=== PATIENT | male | born 1975 ===

== ENCOUNTER 2018-09-18 06:50 | Day surgery (SDC) | payer BC ==
[~2018-09-18 06:50] MED LIST: CEFAZOLIN 2 Gram 2 GM/50 ML BAG IVPB ONE; FAMOTIDINE 20MG TABLET PO ONE; MECLIZINE 25 MG TABLET PO ONE; METOCLOPRAMIDE 10 MG TABLET PO ONE; VANCOMYCIN HCL 1,000 MG in DEXTROSE 5 % IN WATER 250 ML IVPB ONE
[2018-09-18] MEDS ORDERED: BUPIVACAINE 0.5% W/EPI MPF 30 ML VIAL IVP ONE (06:51)
[2018-09-18] MEDS ORDERED: PROPOFOL 10 MG/ML VIAL IV ONE (06:51)
[2018-09-18] MEDS ORDERED: KETOROLAC 30 MG/ML VIAL IVP ONE (06:51)
[2018-09-18] MEDS ORDERED: DEXAMETHASONE 4 MG/ML 1ML VIAL IVP ONE (06:51)
[2018-09-18] MEDS ORDERED: GLYCOPYRROLATE 0.2 MG/ML ML IV ONE (06:51)
[2018-09-18] MEDS ORDERED: MIDAZOLAM HCL 2MG/2ML VIAL IV ONE (06:51)
[2018-09-18] MEDS ORDERED: KETAMINE HCL 100MG/1ML VIAL INJ ONE (06:51)
[2018-09-18] MEDS ORDERED: TRANEXAMIC ACID 1,000 MG/10 ML ML IV ONE (06:51)
[2018-09-18] MEDS ORDERED: ROPIVACAINE HCL (NAROPIN) /PF 5MG/ML 20ML VIAL IV ONE (06:51)
[2018-09-18 07:37] LABS: ABO GROUP A
[2018-09-18 07:38] LABS: ANTIBODY SCREEN NEGATIVE (NEGATIVE); RH TYPE NEGATIVE
[2018-09-18] MEDS ORDERED: HYDROCODONE/APAP 10/325 TABLET PO ONE (12:45)
[2018-09-18] MEDS: HYDROCODONE/APAP 10/325 TABLET PO PRN ×3 (12:50→22:12)
[2018-09-18] MEDS ORDERED: HYDROMORPHONE HCL 2 MG/ML VIAL IM PRN (13:37)
[2018-09-18] MEDS ORDERED: DIPHENHYDRAMINE HCL 25 MG CAPSULE PO PRN (13:37)
[2018-09-18] MEDS ORDERED: ACETAMINOPHEN 325 MG TAB PO PRN (13:37)
[2018-09-18] MEDS ORDERED: AL HYDROX/MAG HYDROX 30ML UD PO PRN (13:37)
[2018-09-18] MEDS ORDERED: MAGNESIUM HYDROXIDE 30 ML UDC PO PRN (13:37)
[2018-09-18] MEDS ORDERED: ACETAMINOPHEN W/ CODEINE 300MG/60MG TABLET PO PRN ×2 (13:37)
[2018-09-18] MEDS ORDERED: ZOLPIDEM TARTRATE 5 MG TABLET PO PRN (13:37)
[2018-09-18] MEDS ORDERED: KETOROLAC 30 MG/ML VIAL IVP PRN ×2 (13:37)
[2018-09-18] MEDS ORDERED: NALOXONE 0.4 MG/1 ML VIAL IVP PRN (13:37)
[2018-09-18] MEDS ORDERED: BISACODYL 10 MG SUPP RC PRN (13:37)
[2018-09-18] MEDS ORDERED: HYDROCODONE/APAP 10/325 TABLET PO PRN (13:37)
--- NOTE | 2018-09-18 14:36 | Rehab Evaluation ---
Patient Information - Patient Information Diagnosis: R knee OA Ordered Treatment: PT Evaluate and Treat Status: Initial Evaluation Surgery: Yes (R TKA) Date of Surgery: 09/18/18 Past Medical/Surgical Hx: PAST MEDICAL/SURGICAL HISTORY Past Surgical History LEFT KNEE ACL RECONSTRUCTION HERNIA REPAIR X'S 2 ORIF JAW COLON RESECTION PMH - Respiratory Hx Respiratory Disorders Yes Comment: CHRONIC SINUS DAILY CLARITIN PMH - Cardiovascular Hx Cardiovascular Disorders No Exercise Tolerance Good PMH - Neuro Hx Neurological Disorders No PMH - GI Hx Gastrointestinal Disorders Yes Hx Diverticulitis Yes: HAS HAD COLON RESECTION PMH - Hx Genitourinary Disorders No PMH - Endocrine Hx Endocrine Disorders No PMH - Musculoskeletal Hx Musculoskeletal Disorders Yes Hx Arthritis Yes: RIGHT KNEE PMH - Psych Hx Psychiatric Problems Yes Hx Anxiety Yes: ON MEDS PMH - Hematology/Oncology Hx Hematology/Oncology No Disorders Premorbid Status: Detail (Prior to surgery the patient was independent with all mobililty.) Social History: Detail (The patient lives spouse in a two story house with 2 steps at he garage enterance with no hand railings. The bathroom is equipped with a tub/shower combination a hand held fact checker and a standard height toilet. The patient has a commode with handles for the toilet, shower bench, walker with wheels and standard cane.) Precautions: [place], Fall, Other (WBAT on the R LE.) - Time With Patient Total Time Spent With Patient (Min): 30 Treatment Procedures: Detail (Initial Evaluation, gait training) Subjective Information - Subjective Information Per Patient (The patient had no complaints of pain.) Objective Data - Mental Status Patient Orientation: Oriented x3 - Visual Perception Appears within normal limits for therapeutic activities - ROM Not within normal limits (The patient's R knee AROM is limited s/p surgery. All other LE AROM is WNL.) - Strength/Tone Not within normal limits (The patient's R LE strength was not tested s/p surgery however patient's strength was functional ie: patient was able to complete a SLR. The patient's LE strength was WNL.) - Bed Mobility Independent (The patient was independent with supine to and from sit transfer and scooting up in bed.) - Transfers Independent (The patient was independent with sit to and from stand transfer and toilet transfer.) - Balance Balance Sitting: Good Balance Standing: Good - Sensation Intact - Gait Detail (The patient ambulated with front wheeled walker with supervision for safety 13 feet x 1 (to bathroom) and 80 feet x 1 WBAT on the R LE.) Therapy Assessment - Therapy Assessment Detail (The patient was independent with bed mobility and transfers and ambulated with supervision for safety only. Feel the patient will progress well with mobility.) Problem List - Problem List Physical Therapy Problem List: Detail (Decreased R knee AROM and decreased R LE strength as to be expected s/p surgery.) Goals - Goals Physical Therapy Goals: 1) The patient will be independent with TKA HEP. 2) The patient will ambulate on stairs using proper technique with supervision for safety only. 3) The patient will ambulate with front wheeled walker independently WBAT on the R LE household distances. Prognosis - Prognosis Good Plan - Plan Physical Therapy Plan: PT for 1-2 sessions for gait training on levels and stairs and instruction in TKA HEP.
[2018-09-18] MEDS: POTASSIUM CHLORIDE/D5-0.9%NACL 20 MEQ/1,000 ML BAG IV SCH ×2 (14:46→23:49)
[2018-09-18] MEDS: ONDANSETRON HCL IV 4 MG/2 ML VIAL IVP PRN (16:44)
[2018-09-18] MEDS: CEFAZOLIN 2 Gram 2 GM/50 ML BAG IVPB SCH (17:44)
[2018-09-18] MEDS: BUSPIRONE 7.5 MG PO SCH (21:32)
[2018-09-18] MEDS: TRAMADOL HCL 50 MG TABLET PO PRN (21:32)
[2018-09-18] MEDS: DOCUSATE SODIUM 100 MG CAPSULE PO SCH (21:32)
[2018-09-19] MEDS: CEFAZOLIN 2 Gram 2 GM/50 ML BAG IVPB SCH ×2 (00:21→10:41)
[2018-09-19] MEDS: TRAMADOL HCL 50 MG TABLET PO PRN ×2 (01:51→13:17)
[2018-09-19] MEDS: HYDROCODONE/APAP 10/325 TABLET PO PRN ×3 (06:37→15:07)
[2018-09-19 06:41] LABS: HEMATOCRIT 40.9 % (42.0-52.0); HEMOGLOBIN 13.8 gm/dl (14.0-18.0)
[2018-09-19 06:52] LABS: BLOOD UREA NITROGEN 9 mg/dL (6-20); CREATININE 0.7 mg/dL (0.7-1.2); EST GLOMERULAR FILTRATION RATE > 60 mL/min; GLUCOSE,RANDOM 117 mg/dL (74-109)
[2018-09-19] MEDS: ONDANSETRON HCL IV 4 MG/2 ML VIAL IVP PRN (07:30)
--- NOTE | 2018-09-19 08:40 | Rehab Evaluation ---
Patient Information - Patient Information Diagnosis: R knee OA Ordered Treatment: OT Evaluate and Treat Status: Initial Evaluation Surgery: Yes (R TKA) Date of Surgery: 09/18/18 Past Medical/Surgical Hx: PAST MEDICAL/SURGICAL HISTORY Past Surgical History LEFT KNEE ACL RECONSTRUCTION HERNIA REPAIR X'S 2 ORIF JAW COLON RESECTION PMH - Respiratory Hx Respiratory Disorders Yes Comment: CHRONIC SINUS DAILY CLARITIN PMH - Cardiovascular Hx Cardiovascular Disorders No Exercise Tolerance Good PMH - Neuro Hx Neurological Disorders No PMH - GI Hx Gastrointestinal Disorders Yes Hx Diverticulitis Yes: HAS HAD COLON RESECTION PMH - Hx Genitourinary Disorders No PMH - Endocrine Hx Endocrine Disorders No PMH - Musculoskeletal Hx Musculoskeletal Disorders Yes Hx Arthritis Yes: RIGHT KNEE PMH - Psych Hx Psychiatric Problems Yes Hx Anxiety Yes: ON MEDS PMH - Hematology/Oncology Hx Hematology/Oncology No Disorders Premorbid Status: Detail (Prior to surgery the patient was independent with all mobililty, yard work, laundry and washing dishes, his was primarily responsible for meal prep and they shared home mgmt tasks.) Social History: Detail (The patient lives with spouse in a two story house with 2 steps at the garage entrance with no hand railings. The bathroom is equipped with a tub/shower combination a hand held shower and shower seat as well as a standard height toilet. The patient has a commode with handles for the toilet, walker with wheels and standard cane.) Precautions: [place], Fall, Other (WBAT on the R LE.) - Time With Patient Total Time Spent With Patient (Min): 35 Treatment Procedures: Detail (OT eval low complexity) Subjective Information - Subjective Information Per Patient Objective Data - Pain Pain Present: Yes (09/16) - Mental Status Patient Orientation: Oriented x3 - Visual Perception Appears within normal limits for therapeutic activities - ROM Within normal limits ([place] UE AROM WNL) - Strength/Tone Within normal limits ([place] UE strength WNL) - Coordination Appears within normal limits for therapeutic activities - Bed Mobility Independent (Ind with sit to supine.) - Transfers Independent (Ind with sit to stand from chair height.) - Balance Balance Sitting: Good Balance Standing: Good - Sensation Intact - Gait Detail (Pt ambulating household distances with 2 wheeled walker.) - ADL's/IADL's Detail (Pt educated and able to demonstrate learning of modified LE dressing techniques including doffing briefs and slipper socks and donning underwear, pants, socks and shoes. Pt educated re: kitchen and shower safety and modifications, he verbalized understanding.) Therapy Assessment - Therapy Assessment Detail (Pt is Ind with modified LE dressing techniques.) Problem List - Problem List Physical Therapy Problem List: Detail (Decreased R knee AROM and decreased R LE strength as to be expected s/p surgery.) Occupational Therapy Problem List: Detail (No current IP OT problems identified. ) Goals - Goals Physical Therapy Goals: 1) The patient will be independent with TKA HEP. 2) The patient will ambulate on stairs using proper technique with supervision for safety only. 3) The patient will ambulate with front wheeled walker independently WBAT on the R LE household distances. Occupational Therapy Goals: No current IP OT goals identified. Prognosis - Prognosis Good Plan - Plan Physical Therapy Plan: PT for 1-2 sessions for gait training on levels and stairs and instruction in TKA HEP. Occupational Therapy Plan: No further IP OT recommended. Thank you for this referral.
--- NOTE | 2018-09-19 08:50 | Operative Note ---
DATE OF SURGERY: 09/18/2018 PREOPERATIVE DIAGNOSIS: End-stage arthrosis of the right knee. POSTOPERATIVE DIAGNOSIS: End-stage arthrosis of the right knee. OPERATION: Cemented right total knee arthroplasty using [employer]ley [employer] Nephew Kristen II components with a size 5 Oxinium femur, a size 4 stem tibia baseplate, a 9 mm lipped highly crosslinked tibial insert, and a 35 mm all plastic patella. Staff Surgeon: Stan Sandoval MD Anesthesia: Spinal. PREPARATION: Chloraprep. INDIVIDUAL CONSIDERATIONS: None. PROCEDURE: The patient was taken to the operating room, placed supine on the operating room table. He had a successful induction of spinal anesthetic. The right lower extremity was prepped and draped in the usual fashion. The limb was elevated and tourniquet was inflated to 250 mmHg. The patient had a midline approach to the knee. Sharp dissection carried down through skin and subcutaneous tissue. Small veins were coagulated with a Bovie. A medial arthrotomy was performed. The patella was everted and the knee was flexed. He had bone loss and [id number] contact medially and some exposed bone even laterally. Fat pad was resected, ACL was not present. Provisional anterior meniscectomies were performed, and the capsule was released from the medial proximal tibia. The initial femoral corporation pilot hole was then made freehand. The intramedullary femoral cutting jig was placed. It was cut in 7.0 degrees of valgus and adjusted for rotation and secured with pins for a 10 mm resection. The initial transverse cut was then made. The skin guide was placed in the anterior and posterior corporation pilot holes. The anterior and posterior cuts followed by chamfer cuts were made. Osteophytes removed, and it was found that a size 5 would be appropriate. After placing the trial, the trial was removed. The tibia was brought forward, and the remainder of the meniscal remnants removed with a Bovie. The extraarticular tibial cutting jig was placed. It was cut in neutral with a 3-degree AP slope. Care was taken to adjust for rotation and flexion using the extraarticular alignment guide and bony landmarks. It was set for a 9 mm resection keyed off the high lateral side and secured with pins. When cutting the tibia, care was taken to preserve the PCL insertion on the tibia. Large medial osteophytes removed, and I was able to fit a size 4 after adjusting for rotation and secured with pins. With the 9 mm trial and the femoral trial, there was excellent motion and stability, ligamentous balance, rotation alignment were thought to be exact. The femoral corporation pilot holes were impacted and a tri-flange tibial stamp was impacted, and these trial components were removed. The tibial keel was also impacted. The patient had a thick patella. I removed roughly 9 mm of bone freehand and was able to fit a 35 patella and then 3 corporation pilot holes were drilled. The tourniquet was let down briefly to get bleeders posteriorly and then placed back up agin. The knee was then thoroughly irrigated out with pulsatile Betadine and saline to remove any visual or palpable debris. Bony surfaces were then dried. A size 4 stem tibia baseplate was cemented into place followed by impaction of the 9 mm lipped tibial insert followed by cementing in the size 5 Oxinium femur followed by cementing in the 35 mm all plastic patella. The implant surfaces were compressed, excess cement was removed, and after the cement had set, there was excellent motion and stability, ligamentous balance, rotation alignment, and patellofemoral tracking were normal. No lateral release was required. The subcu was then infiltrated with 30 mL of 0.5% Marcaine with epinephrine. The capsule was then closed with a running #2 quill, subcu was closed in layers with running 0 quill, skin was closed with sophia. The patient did receive 1 g of tranexamic acid preoperatively. I mixed 1 g of tranexamic acid with 30 mL of saline and injected into the knee through a sterile 18-gauge needle and a sterile bulky compressive dressing was applied. The patient tolerated the procedure well. Needle and sponge counts were correct. Estimated blood loss was minimal, and he was taken back to recovery in good condition. There were no complications. QUYNH
[2018-09-19] MEDS: POTASSIUM CHLORIDE/D5-0.9%NACL 20 MEQ/1,000 ML BAG IV SCH (09:23)
--- NOTE | 2018-09-19 09:54 | Physical Therapy Tx Note ---
Physical Therapy Tx Note - Treatment Note Tolerated: Good Total Time Spent With Patient: 30 Physical Therapy Tx Note: Detail (The patient was up in bed when PT arrived. The patient ambulated indpendently with front wheeled walker a distance of 200 feet WBAT on the R LE. The patient ambulated on 3 steps with use of folded walker and railing using proper technique with supervision for safety. The patient completed TKA HEP : heel slides supine, quad sets, gluteal sets, hamstrings, SLR and ankle pumps. The patient has met all inpatient goals and is discharged from inpatient PT.) Physical Therapy Problem List: Detail (Decreased R knee AROM and decreased R LE strength as to be expected s/p surgery.) Physical Therapy Goals: 1) The patient will be independent with TKA HEP. (Goal Met). 2) The patient will ambulate on stairs using proper technique with supervision for safety only.(Goal Met). 3) The patient will ambulate with front wheeled walker independently WBAT on the R LE household distances. (Goal Met) Physical Therapy Plan: The patient has met all inpatient goals. The patient is to receive Home PT.
[2018-09-19] MEDS ORDERED: RIVAROXABAN 10 MG TABLET PO SCH (10:00)
[2018-09-19] MEDS ORDERED: FERROUS SULFATE 325 MG TAB PO SCH (10:00)
[2018-09-19] MEDS ORDERED: CLARITIN 10 MG PO SCH (10:00)
[2018-09-19] MEDS: DOCUSATE SODIUM 100 MG CAPSULE PO SCH (10:42)
[2018-09-19] MEDS: BUSPIRONE 7.5 MG PO SCH (10:44)
== END 2018-09-19 15:30 | disposition home or self-care (01) ==
LOC: SUR 06:50 → MEDSURG 12:11 → SUR 09-19 15:30
PROVIDERS: ATTEND Orthopaedic Surgery
DX: M17.11 Unilateral primary osteoarthritis, right knee (principal)
CPT/HCPCS: 27447; 01402; 64447; 85018; 85014; 80048; 86900; 86901; 86850; J1885; J2405 ×2; J3370; J3490 ×5; J1170; J0690 ×2; J2795; 76942; 97110; 97530; C1776; J3480; J7060